=== PATIENT | female | born 1990 | race Caucasian/White ===

== ENCOUNTER 2021-02-04 18:15 | Emergency (ER) | payer BC, MEDICAID, SELFPAY ==
[2021-02-04 18:31] VITALS: BP 131/96; PULSE 91; RESP 18; TEMP 37.1; O2SAT 96
--- NOTE | 2021-02-04 18:41 | XRR_ITS ---
PROCEDURE INFORMATION: Exam: XR Left Elbow Exam date and time: 02/04/2021 7:06 PM Age: 30 years old Clinical indication: Injury or trauma; Blunt trauma (contusions or hematomas); Elbow; Injury date: 02/04/21; Patient HX: Fall from horse today, left arm pain TECHNIQUE: Imaging protocol: XR Left elbow. Views: 1 or 2 views. Total images: 2 COMPARISON: No relevant prior studies available. FINDINGS: Bones/joints: Normal. Soft tissues: Normal. XR/XR elbow LT 2V [id number] IMPRESSION: No acute findings.
--- NOTE | 2021-02-04 18:41 | XRR_ITS ---
PROCEDURE INFORMATION: Exam: XR Left Forearm Exam date and time: 02/04/2021 6:42 PM Age: 30 years old Clinical indication: Injury or trauma; Blunt trauma (contusions or hematomas); Arm, lower; Injury date: 02/04/21; Patient HX: Fall from horse today, left arm pain TECHNIQUE: Imaging protocol: XR Left forearm. Views: 2 views. Total images: 2 COMPARISON: No relevant prior studies available. FINDINGS: Bones/joints: Normal. Soft tissues: Normal. XR/XR forearm LT 2V [id number] IMPRESSION: No acute findings.
--- NOTE | 2021-02-04 18:41 | XRR_ITS ---
PROCEDURE INFORMATION: Exam: XR Left Humerus Exam date and time: 02/04/2021 7:06 PM Age: 30 years old Clinical indication: Injury or trauma; Blunt trauma (contusions or hematomas); Arm, upper; Injury date: 02/04/21; Patient HX: Fall from horse today, left arm pain TECHNIQUE: Imaging protocol: XR Left humerus. Views: 2 or more views. Total images: 2 COMPARISON: No relevant prior studies available. FINDINGS: Bones/joints: Normal. Soft tissues: Normal. XR/[place] [id number] IMPRESSION: No acute findings.
--- NOTE | 2021-02-04 18:43 | ED_ITS ---
HPI - Extremity Problem General: Chief complaint: Extremity Injury, Upper Stated complaint: Injury L.Arm/Bucked off Horse Time Seen by Provider: 02/04/21 18:38 History of Present Illness: HPI Narrative: Patient bucked off a horse just a few minutes ago has pain to her left elbow area. Denies any loss consciousness denies any pain anywhere else. MD Complaint: extremity pain and joint pain Onset (ago): minute(s) Pain Consistency: constant Location: left, upper extremity and elbow Severity scale (1-10): 8 Quality: aching Radiation: proximal and distal Relieving factors: immobilization Exacerbating factors: range of motion Associated symptoms: Reports no associated symptoms; Deny chest pain, fever(s) or rash Review of Systems Const: Denies: fever(s), chills or body aches Eyes: Denies: change in vision or blurry vision ENMT: Denies: throat pain or nasal congestion Card: Denies: chest pain or dyspnea on exertion Resp: Denies: dyspnea, productive cough or non-productive cough GI: Denies: abdominal pain, nausea or vomiting Musc: Reports: extremity pain and joint pain (Left elbow) Skin/Breast: Denies: rash Neuro: Denies: headache(s) Psych: Denies: anxiety or depression Milind/Lymph: Denies: easy bruising Physical Exam Const: COMMON NORMALS: no acute distress, average body habitus and patient oriented x3 HENMT: COMMON NORMALS: normocephalic HEAD & SCALP: normal to inspection and normocephalic FACE & SINUS: normal facial exam Eye: COMMON NORMALS: conjunctivae normal GENERAL EYE: appearance normal, both eyes and all related structures CONJUNCTIVA: Yes conjunctivae normal Neck/C-Spine: COMMON NORMALS: no JVD Chest: COMMONS NORMALS: normal inspection of the chest Resp: COMMON NORMALS: normal respiratory effort and clear to auscultation bilaterally AUSCULTATION: clear to auscultation bilaterally Cardio: COMMON NORMALS: no JVD, regular rate and regular rhythm RATE: regular rate RHYTHM: regular rhythm GI: COMMON NORMALS: Normal to inspection, nondistended, normoactive bowel marly nds present Extremity: LEFT UPPER EXTREMITY: Yes elbow joint (Very tender decreased range of motion due to pain) Left elbow: Yes neurovascular exam (Can move fingers fingers 3 through 5 feel numb to her) Neuro: COMMON NORMALS: patient oriented x3 Course Vital Signs: Vital signs: Vital Signs Temperature 98.7 F 02/04/21 18:31 Pulse Rate 78 02/04/21 20:20 Respiratory Rate 18 02/04/21 20:20 Blood Pressure 124/76 02/04/21 20:20 Pulse Oximetry 97 02/04/21 20:20 MDM - Extremity (Nontraumatic) MDM Narrative: Medical decision making narrative: X-rays reviewed with Dr. Ortiz. Reviewed radiologist interpretation. Patient appears to have ulnar contusion. Was better by the end of visit here. Discharge Plan Discharge Patient Disposition: Home Clinical Impression: Contusion of ulnar nerve Qualifiers: Encounter type: initial encounter Laterality: left Qualified Code(s): S54.02XA - Injury of ulnar nerve at forearm level, left arm, initial encounter Condition: Stable Discharge Orders: Discharge ED (Routine); Ordered 02/04/21 Ordered By: Francisco Gutierrez Referrals: Ish Mcghee MD [Primary Care Provider] - Discharge Diet: Usual diet Discharge Activity: Increase activity as tolerated Patient Instructions: Contusion in Adults (ED) Activity Restrictions/Additional Instructions: Apply ice to area can take naproxen for pain follow-up as needed. Coding Level of Care Code ED Elementary Educator for Gay Fwelodia Exam Comprehensive
[2021-02-04] MEDS: ondansetron 2 mg/ML SDV 2 mL 4 MG IVP (19:08)
[2021-02-04 19:09] VITALS: RESP 22; O2SAT 99
[2021-02-04] MEDS: HYDROmorphone 1 mg/mL INJ 1 mL IVP (19:09)
[2021-02-04 19:13] VITALS: PULSE 80
[2021-02-04 19:18] VITALS: BP 144/85; PULSE 67; RESP 18; O2SAT 97
[2021-02-04 20:20] VITALS: BP 124/76; PULSE 78; RESP 18; O2SAT 97
== END 2021-02-04 20:23 | disposition home or self-care (01) ==
PROVIDERS: Emergency Provider Nurse Practitioner Family; PCP Family Medicine
DX: S54.02XA Injury of ulnar nerve at forearm level, left arm, initial encounter (principal); V80.919A Animal-rider injured in unspecified transport accident, initial encounter
CPT/HCPCS: 73060; 73070; 73090; 96374; 96375; 99283; J1170; J2405

== ENCOUNTER 2021-02-28 06:52 | Outpatient (CLI) | payer BC, MEDICAID, SELFPAY ==
--- NOTE | 2021-02-28 10:15 | MR_ITS ---
WS: [id number] MRI LEFT ELBOW without CONTRAST. COMPARISON: Radiographs 02/11/2021 Multiplanar, multisequence imaging is performed without contrast. There is a large amount of marrow edema in the lateral humeral condyle and epicondyle. Edema extends over the distal 3.7 cm of the humerus. No edema in the radial head. No discrete fracture line. With t his amount of edema fracture is probably present. There is a moderate size joint effusion extending into the anterior and posterior capsule and soft ti ssue edema surrounding the elbow. There is a large amount of edema in the palmaris longus muscle aparna g the medial joint line. Edema surrounds the common flexor tendon. There is edema surrounding the uln ar collateral ligament also. Fluid adjacent to the radial collateral ligament and the common extensor tendon. MR/MR elbow LT wo con* [id number] IMPRESSION: 1. Large amount of marrow edema in the lateral humeral condyle and epicondyle without a definite fracture identified. 2. Muscular edema most significant in the palmaris longus muscle along the med ial joint line of the elbow. 3. There is a large amount of edema and increased T2 signal surrounding and th rough the flexor and extensor tendons and also involving the ulnar collateral l igament and the radial collateral ligament. There is motion artifact obscuring detail but I believe these tendons and ligaments are at least partially torn. Heena whiting was unable to hold still for this examination due to discomfort. 4. Moderate-sized joint effusion distending the anterior and posterior capsule .
== END 2021-02-28 06:53 | disposition home or self-care (01) ==
LOC: RADSHAW 06:54
PROVIDERS: PCP Family Medicine; Visit Provider Family Medicine
DX: S59.902A Unspecified injury of left elbow, initial encounter (principal); R60.0 Localized edema; X58.XXXA Exposure to other specified factors, initial encounter; M25.422 Effusion, left elbow
CPT/HCPCS: 73221

== ENCOUNTER → 2021-03-02 10:41 | Outpatient (BNVA) | payer BC, MEDICAID, SELFPAY | PROVIDERS: PCP Family Medicine; Referring Provider Family Medicine; Visit Provider Specialist | DX: M25.522 Pain in left elbow (principal) | CPT/HCPCS: 73080 ==

== ENCOUNTER 2021-03-02 14:14 | Outpatient (CLI) | payer BC, MEDICAID, SELFPAY | END 2021-03-02 14:15 | disposition home or self-care (01) | LOC: SPT 14:14 | PROVIDERS: PCP Family Medicine; Visit Provider Specialist | DX: Z46.89 Encounter for fitting and adjustment of other specified devices (principal); S42.452D Displaced fracture of lateral condyle of left humerus, subsequent encounter for fracture with routine healing; X58.XXXD Exposure to other specified factors, subsequent encounter | CPT/HCPCS: 97760; L3761 ==

== ENCOUNTER → 2021-03-30 11:07 | Outpatient (BNVA) | payer BC, MEDICAID, SELFPAY | PROVIDERS: PCP Family Medicine; Visit Provider Specialist | DX: S42.453A Displaced fracture of lateral condyle of unspecified humerus, initial encounter for closed fracture (principal); M25.522 Pain in left elbow; X58.XXXA Exposure to other specified factors, initial encounter | CPT/HCPCS: 73080 ==

== ENCOUNTER 2022-05-13 09:05 | Emergency (ER) | payer BC, MEDICAID, SELFPAY ==
[2022-05-13 09:09] VITALS: BMI 30.1
--- NOTE | 2022-05-13 09:16 | USR_ITS ---
PROCEDURE INFORMATION: Exam: US Nonobstetric Pelvis; Complete Exam date and time: 05/13/2022 9:50 AM Age: 31 years old Clinical indication: Pelvic pain; Prior surgery; Surgery date: 6+ months; Surgery type: Csection TECHNIQUE: Imaging protocol: Transabdominal pelvic nonobstetric ultrasound. Complete exam. Real time ultrasound with image documentation. COMPARISON: US [facility] [place] Pelvic w TV 10/25/2017 1:31 PM FINDINGS: Uterus: Uterus is normal. Endometrial stripe is 4.8 mm. The uterus measures 8 cm x 5.1 cm x 5.8 cm Right ovary/adnexa: Ovary is normal. No mass. Normal blood flow. 2.8 x 2.4 cm x 2.1 Left ovary/adnexa: Ovary is normal. No mass. No vascular flow is seen possible torsion. Left ovary measures 2 cm x 2 cm x 4 cm Intraperitoneal space: No intraperitoneal fluid. Urinary bladder: Normal. US/US pelvic complete* [id number] IMPRESSION: 1. Left ovary is without evidence of vascular flow possible torsion. 2. Negative uterus and endometrium 3. Negative right ovary
[2022-05-13] MEDS: promethazine 25 mg/mL SDV 1 mL IM (09:37)
[2022-05-13] MEDS: ketorolac 30 mg/mL INJ IVP (09:38)
--- NOTE | 2022-05-13 09:39 | W.ED.ABDPA2 ---
HPI - Abdominal Pain General: Chief Complaint: Abdominal Pain Stated Complaint: left Ovary pain Time Seen by Provider: 05/13/22 09:06 Source: patient Mode of arrival: ambulatory History of Present Illness: 31-year-old female presents emergency room with left sided pelvic pain that began last night. She has had a history of PCOS. She is used tramadol last night it had helped relieve the pain somewhat but not completely resolve it. She still has rather severe pain in that side. She is currently on her period its been rather light she is not previously had tubal ligation or any ectopic pregnancies she is her only abdominal surgeries were 2 planned sections. She not had any fever sweats chills no dysuria urgency or frequency no excessively heavy bleeding. Despite the PCOS she states she has not had major problems with ovarian cyst in the past. MD elicited complaint: other (Pelvic pain) Onset (ago): hour(s) Pain Consistency: constant Location: LLQ Severity: severe Quality: cramping Radiation: none Migration to: no migration Exacerbating factors: nothing Relieving factors: nothing Associated Symptoms: Reports GI cramping and nausea; Denies anorexia, belching, bloating, change in bowel habits, change in stool character, chills, coffee ground emesis, constipation, diarrhea, dyspepsia, dysuria, excessive flatus, fever(s), heartburn, hematochezia, hematuria, hematemesis, fecal incontinence, loose stools, melena, poor appetite, syncope and vomiting Related Data: Date of Last Menstrual Period: 05/13/22 Review of Systems Const: Denies: fever(s), chills, fatigue or malaise ENMT: Denies: throat pain, ear or mastoid pain, nasal discharge or nasal congestion Card: Denies: chest pain, palpitations, irregular heart rhythm or syncope Resp: Denies: dyspnea, productive cough or non-productive cough GI: Reports: abdominal pain, nausea and GI cramping; Denies: vomiting, hematemesis, coffee ground emesis, heartburn, diarrhea, constipation, bloating, belching, excessive flatus, fecal incontinence, change in bowel habits, change in stool character, hematochezia or melena : Denies: flank pain, difficulty voiding, dysuria, urinary frequency, urinary urgency or hematuria Skin/Breast: Denies: rash or pruritus PFSH ED PFSH: Social History Smoking and tobacco status: never smoked Female Reproductive History: Date of last menstrual period: 05/13/22 Physical Exam Const: COMMON NORMALS: no acute distress GENERAL APPEARANCE: cooperative and comfortable ORIENTATION/CONSCIOUSNESS: Yes awake, Yes oriented to person, Yes oriented to place and Yes oriented to time HENMT: COMMON NORMALS: normocephalic, atraumatic and hearing grossly normal bilaterally HEAD & SCALP: normocephalic and atraumatic Resp: COMMON NORMALS: normal respiratory effort, No retractions, No use of accessory muscles and clear to auscultation bilaterally AUSCULTATION: clear to auscultation bilaterally Cardio: COMMON NORMALS: regular rate, regular rhythm and No murmurs present (Cardio) RATE: regular rate RHYTHM: regular rhythm GI: COMMON NORMALS: No hepatosplenomegaly present AUSCULTATION: Yes normoactive bowel sounds PALPATION: Yes Tenderness to palpation present (GI) Details: LLQ, No Guarding due to palpation present (GI) and Yes No hepatosplenomegaly present Extremity: COMMON NORMALS: normal to inspection, capillary refill normal, no clubbing, cyanosis or edema, no calf tenderness and no pedal edema Neuro: SENSORIUM/ORIENTATION: Yes oriented to person, Yes oriented to place and Yes oriented to time Skin: COMMON NORMALS: no rashes or lesions noted GENERAL SKIN EXAM: no rashes or lesions noted Course Vital Signs: Vital signs: Vital Signs Temperature 98.6 F 05/13/22 10:25 Pulse Rate 73 05/13/22 10:25 Respiratory Rate 16 05/13/22 10:27 Blood Pressure 143/99 05/13/22 10:25 Pulse Oximetry 98 05/13/22 10:25 Oxygen Delivery Me thod 05/13/22 10:25 MDM - Abdominal Pain Medical Decision Making Sound read as left ovarian torsion. Discussed with gynecology on-call in [place] transferred via ambulance for left ovarian torsion. Medical Records I reviewed the patient's medical records. Lab Data I reviewed the patient's lab results. : 05/13/22 09:40 05/13/22 09:40 Labs/Radiology: Radiology Impressions Pelvis Ultrasound 05/13/22 09:16 IMPRESSION: 1. Left ovary is without evidence of vascular flow possible torsion. 2. Negative uterus and endometrium 3. Negative right ovary ADDENDUM: 05/13/22 1028 THADDEUS Bocanegra has seen the report and does not have further questions and does not require a conference call at 05/13/2022 10:26 AM Laboratory Results WBC 9.2 10^3/uL (4.0-10.0) 05/13/22 09:40 RBC 4.52 10^6/uL (4.1-5.3) 05/13/22 09:40 Hgb 14.0 g/dL (11.5-15.3) 05/13/22 09:40 Hct 43.1 % (37.0-47.0) 05/13/22 09:40 MCV 95.4 fl (81-99) 05/13/22 09:40 MCH 31.0 pg (28.0-34.0) 05/13/22 09:40 MCHC 32.5 g/dL (30.0-36.0) 05/13/22 09:40 RDW 12.4 % (12.1-15.1) 05/13/22 09:40 Plt Count 295 10^3/cmm (130-400) 05/13/22 09:40 MPV 9.5 fL (7.4-10.4) 05/13/22 09:40 Neut % (Auto) 69.6 % 05/13/22 09:40 Lymph % (Auto) 19.2 % 05/13/22 09:40 Parker % (Auto) 8.1 % 05/13/22 09:40 Eos % (Auto) 2.3 % 05/13/22 09:40 Baso % (Auto) 0.5 % 05/13/22 09:40 Neut # (Auto) 6.38 10^3/uL (1.8-7.7) 05/13/22 09:40 Lymph # (Auto) 1.8 10^3/uL (0.8-4.8) 05/13/22 09:40 Parker # (Auto) 0.7 10^3/uL (0.2-0.9) 05/13/22 09:40 Eos # (Auto) 0.2 10^3/uL (0.0-0.8) 05/13/22 09:40 Baso # (Auto) 0.1 10^3/uL (0.0-0.1) 05/13/22 09:40 Nucleated RBC % (auto) 0 % 05/13/22 09:40 Nucleated RBCs # 0.0 /100WBC 05/13/22 09:40 Sodium 141 mmol/L (136-145) 05/13/22 09:40 Potassium 3.9 mmol/L (3.5-5.1) 05/13/22 09:40 Chloride 106 mmol/L (98-107) 05/13/22 09:40 Carbon Dioxide 26 mmol/L (22-29) 05/13/22 09:40 Anion Gap 12.9 (5-19) 05/13/22 09:40 BUN 11 mg/dL (6-20) 05/13/22 09:40 Creatinine 0.9 mg/dL (0.5-0.9) 05/13/22 09:40 GFR Calculation 73.0 mL/min (90-130) L 05/13/22 09:40 Glucose 78 mg/dL (65-115) 05/13/22 09:40 Calculated Osmolality 290 mOsm/kg (285-295) 05/13/22 09:40 Calcium 8.6 mg/dL (8.5-10.5) 05/13/22 09:40 Total Bilirubin 0.3 mg/dL (0.15-1.2) 05/13/22 09:40 AST 12 U/L (0-32) 05/13/22 09:40 ALT 11 U/L (0-33) 05/13/22 09:40 Alkaline Phosphatase 67 U/L (35-105) 05/13/22 09:40 Total Protein 6.6 g/dL (6.6-8.7) 05/13/22 09:40 Albumin 4.0 g/dL (3.5-5.2) 05/13/22 09:40 Globulin 2.6 g/dL (1.3-4.6) 05/13/22 09:40 HCG, Qual Cancelled 05/13/22 09:40 Urine Color Yellow (Yellow) 05/13/22 10:15 Urine Appearance Sl hazy (CLEAR) 05/13/22 10:15 Urine pH 7 (5-7) 05/13/22 10:15 Ur Specific [place] 1.005 (1.005-1.030) 05/13/22 10:15 Urine Protein Neg (Negative) 05/13/22 10:15 Urine Glucose (UA) Norm (Normal) 05/13/22 10:15 Urine Ketones Negative (Negative) 05/13/22 10:15 Urine Blood 3+ (Negative) H 05/13/22 10:15 Urine Nitrate Negative (Negative) 05/13/22 10:15 Urine Bilirubin Neg (Negative) 05/13/22 10:15 Urine Urobilinogen Norm mg/dL (Negative) 05/13/22 10:15 Ur Leukocyte Esterase Trace (Negative) H 05/13/22 10:15 Urine RBC 0-4 /hpf (0-2) H 05/13/22 10:15 Urine WBC 0-4 /hpf (0-5) H 05/13/22 10:15 Ur Squamous Epith Cells 0-4 /hpf (0-5) H 05/13/22 10:15 Amorphous Sediment Not Reportable 05/13/22 10:15 Urine Bacteria Trace /hpf (NONE) 05/13/22 10:15 Urine HCG, Qual Negative (Negative) 05/13/22 10:15 Discharge Plan Discharge Patient Disposition: Xfer Short-Term Hosp Clinical Impression: Torsion of left ovary Condition: Stable Referrals: [facility], [Occupational Therapist] - Coding Level of Care Code ED Radio Time Sales Supervisor for Gay Garcia
[2022-05-13 09:48] LABS: Basophils # 0.1 10^3/uL (0.0-0.1); Basophils % 0.5 %; Eosinophils # 0.2 10^3/uL (0.0-0.8); Eosinophils % 2.3 %; Hematocrit 43.1 % (37.0-47.0); Lymphocytes # 1.8 10^3/uL (0.8-4.8); Lymphocytes % 19.2 %; Mean Corpuscular HGB Conc 32.5 g/dL (30.0-36.0); Mean Corpuscular Volume 95.4 fl (81-99); Mean Platelet Volume 9.5 fL (7.4-10.4); Monocytes # 0.7 10^3/uL (0.2-0.9); Monocytes % 8.1 %; Neutrophils # 6.38 10^3/uL (1.8-7.7); Neutrophils % 69.6 %; Nucleated Red Blood Cells % 0 %; Platelet Count 295 10^3/cmm (130-400); Red Blood Count 4.52 10^6/uL (4.1-5.3); Red Cell Distribution Width 12.4 % (12.1-15.1); White Blood Count 9.2 10^3/uL (4.0-10.0)
[2022-05-13 10:13] LABS: Alanine Aminotransferase 11 U/L (0-33); Alkaline Phosphatase 67 U/L (35-105); Anion Gap 12.9 (5-19); Aspartate Amino Transferase 12 U/L (0-32); Blood Urea Nitrogen 11 mg/dL (6-20); Calcium 8.6 mg/dL (8.5-10.5); Carbon Dioxide 26 mmol/L (22-29); Chloride 106 mmol/L (98-107); Globulin 2.6 g/dL (1.3-4.6); Glucose 78 mg/dL (65-115); Osmolality Calculated 290 mOsm/kg (285-295); Potassium 3.9 mmol/L (3.5-5.1); Sodium 141 mmol/L (136-145); Total Bilirubin 0.3 mg/dL (0.15-1.2); Total Protein 6.6 g/dL (6.6-8.7)
--- NOTE | 2022-05-13 10:23 | PC.NURSE ---
Report has been called to Myrna COOK
[2022-05-13 10:25] VITALS: BP 143/99; PULSE 73; RESP 18; TEMP 37; O2SAT 98
[2022-05-13 10:27] VITALS: RESP 16
[2022-05-13] MEDS: fentaNYL 50 mcg/mL INJ 2mL IVP (10:27)
[2022-05-13 10:48] LABS: Urine Appearance SL Hazy (CLEAR); Urine Color Yellow (Yellow)
[2022-05-13 10:49] LABS: Add Urine Culture? No; Add Urine Microscopic? YES; Bacteria Urine TRACE /hpf; Bilirubin Urine Neg (Negative); Blood Urine 3+ (Negative); Glucose Urine UA Norm (Normal); Ketones Urine Negative (Negative); Leukocyte Esterase Urine Trace (Negative); Nitrate Urine Negative (Negative); Protein Urine Neg (Negative); RBC Urine 0-4 /hpf (0-2); Specific Gravity, Urine 1.005 (1.005-1.030); Squamous Epithelial Cell Urine 0-4 /hpf (0-5); Urobilinogen Urine Norm (Negative); WBC Urine 0-4 /hpf (0-5); pH Urine 7 (5-7)
== END 2022-05-13 10:50 | disposition short-term general hospital (02) ==
PROVIDERS: Emergency Provider Family Medicine
DX: N83.512 Torsion of left ovary and ovarian pedicle (principal)
CPT/HCPCS: 76856; 80053; 81001; 81025; 85025; 96372; 96374; 96375; 99285; J1885; J2550; J3010

== ENCOUNTER 2022-05-29 00:35 | Emergency (ER) | payer BC, MEDICAID, SELFPAY ==
[2022-05-29 00:54] VITALS: BP 137/97; PULSE 94; RESP 18; TEMP 36.8; O2SAT 98; BMI 28.3
--- NOTE | 2022-05-29 00:59 | W.ED.EXTPRO ---
HPI - Extremity Problem General: Chief complaint: Extremity Injury, Lower Stated complaint: left leg numbness Time Seen by Provider: 05/29/22 00:58 History of Present Illness: 31-year-old female comes in today with pain to the tailbone and numbness to the left lower extremity. Patient reports slipping and falling about 630 this evening. Patient had some discomfort but then started having numbness around 11:00 tonight and became concerned and came into the emergency department. Patient appears nontoxic. Patient appears in mild pain. Review of Systems Musc: Reports: back pain PFS ED PFSH: Social History Smoking and tobacco status: never smoked Female Reproductive History: Date of last menstrual period: 05/13/22 Physical Exam Const: COMMON NORMALS: alert HENMT: COMMON NORMALS: normocephalic HEAD & SCALP: normocephalic Neck/C-Spine: COMMON NORMALS: full ROM Resp: COMMON NORMALS: normal respiratory effort and clear to auscultation bilaterally AUSCULTATION: clear to auscultation bilaterally Back/Pelvis: LUMBAR SPINE/LOWER BACK: Yes lumbar spinal tenderness Lumbar spinal tenderness location: L5 SACRUM: tenderness positive midline Extremity: COMMON NORMALS: normal to inspection Neuro: SENSORIUM/ORIENTATION: Yes alert Skin: COMMON NORMALS: turgor normal GENERAL SKIN EXAM: turgor normal Course Vital Signs: Vital signs: Vital Signs Temperature 98.2 F 05/29/22 00:54 Pulse Rate 94 05/29/22 00:54 Respiratory Rate 17 05/29/22 01:10 Blood Pressure 137/97 05/29/22 00:54 Pulse Oximetry 100 05/29/22 01:10 Oxygen Delivery Me thod 05/29/22 01:10 MDM - Extremity (Nontraumatic) Medical Decision Making Patient comes in for evaluation of injury sustained during a fall this evening at around 630. Patient reports tailbone pain. Patient became more concerned when she had numbness in her left leg. Patient admits to taking a half a tablet of tramadol with minimal improvement of pain. Patient appears nontoxic. Patient has tenderness in the lower lumbar spine and sacral area on palpation. Leg lift test is negative. Patient is able ambulate without difficulty. Vital signs are normal. Differential diagnosis includes intervertebral disc disease, facet arthropathy, muscle spasm, vertebral fracture. X-ray of the lumbar spine and sacral coccyx showed no obvious fracture. Radiologist will review that for definitive interpretation. Patient does have some loss of lower lumbar curvature suggesting may be a muscle spasm. Recommended patient do gentle stretching and range of motion exercises. Put patient on ibuprofen 800 mg 3 times a day for 7 to 10 days for pain and inflammation. Recommend acetaminophen for further pain relief. Wrote a prescription for 7 tablets of hydrocodone for breakthrough pain. Patient was encouraged to stay active, drink plenty of fluids, and follow-up with primary care for further evaluation. Patient stated understanding and agreed to plan. Discharge Plan Discharge Patient Disposition: Home Clinical Impression: Fall Qualifiers: Encounter type: initial encounter Qualified Code(s): W19.XXXA - Unspecified fall, initial encounter Low back pain Qualifiers: Chronicity: acute Back pain laterality: left Sciatica presence: with sciatica Sciatica laterality: sciatica of left side Qualified Code(s): M54.42 - Lumbago with sciatica, left side Condition: Stable Prescriptions: New ibuprofen 800 mg tablet 800 mg PO Q8H Qty: 30 0RF hydrocodone-acetaminophen 5-325 mg tablet 1 tab PO Q8H PRN (Reason: pain (scale score 7-10)) Qty: 7 0RF No Action naproxen sodium [Flanax (naproxen)] 220 mg tablet 220 mg PO BID PRN (DME) HINGED ELBOW BRACE See Rx Instructions .ROUTE .MEDSUPPLY Qty: 1 0RF Rx Instructions: As directed Discharge Orders: Discharge ED (Routine); Ordered 05/29/22 Ordered By: Jorge Jones Referrals: Ish Mcghee MD [Primary Care Provider] - Discharge Diet: Usual diet Discharge Activity: Increase activity as tolerated Patient Instructions: Back Pain (ED), Opioid Safety Activity Restrictions/Additional Instructions: Activity as tolerated. Gentle stretching and range of motion exercises. Take ibuprofen 800 mg 3 times a day for the next 7 to 10 days for pain and inflammation. Use acetaminophen 1000 mg every 6 hours as needed to help control pain. Use hydrocodone for severe pain. Drink plenty of water with medications. Avoid the use of hydrocodone containing medication while driving or operating equipment that may hurt other individuals. Follow-up with primary care in 3 to 5 days for recheck. Return to ER for new concerns or worsening symptoms such as loss of bowel or bladder control, fever greater than 100.4, or uncontrolled pain. Coding Level of Care Code ED Manager Field Investigations for Chg Fwd Exam Detailed
--- NOTE | 2022-05-29 01:01 | XRR_ITS ---
PROCEDURE INFORMATION: Exam: XR Sacrum and Coccyx, 2 or More Views Exam date and time: 05/29/2022 1:08 AM Age: 31 years old Clinical indication: Injury or trauma; Fall; Blunt trauma (contusions or hematomas); Additional info: Fall, radiculopathy TECHNIQUE: Imaging protocol: XR of the sacrum and coccyx, 2 or more views. COMPARISON: CR XR lumbar spine 2-3V* [id number] 10/22/2018 12:41 PM FINDINGS: Bones/joints: Normal. No acute fracture. Soft tissues: Normal. XR/XR sacrum coccyx min 2V [id number] IMPRESSION: No acute findings.
--- NOTE | 2022-05-29 01:01 | XRR_ITS ---
PROCEDURE INFORMATION: Exam: XR Lumbosacral Spine Exam date and time: 05/29/2022 1:17 AM Age: 31 years old Clinical indication: Injury or trauma; Fall; Blunt trauma (contusions or hematomas); Additional info: Injury, fall, radiculopathy TECHNIQUE: Imaging protocol: Radiologic exam of the lumbosacral spine. Views: 2 or 3 views. COMPARISON: CR XR sacrum coccyx min 2V [id number] 05/29/2022 1:08 AM FINDINGS: Bones/joints: Normal. No acute fracture. Normal alignment. Soft tissues: Unremarkable. XR/XR lumbar spine 2-3V* [id number] IMPRESSION: No acute findings.
[2022-05-29 01:10] VITALS: RESP 17; O2SAT 100
[2022-05-29] MEDS: ibuprofen 800 mg tablet PO (01:10)
== END 2022-05-29 01:47 | disposition home or self-care (01) ==
PROVIDERS: Emergency Provider Nurse Practitioner Family; PCP Family Medicine
DX: M54.42 Lumbago with sciatica, left side (principal); W01.0XXA Fall on same level from slipping, tripping and stumbling without subsequent striking against object, initial encounter
CPT/HCPCS: 72100; 72220; 99283

== ENCOUNTER 2022-07-26 15:47 | Emergency (ER) | payer BC, MEDICAID, SELFPAY ==
[2022-07-26 15:56] VITALS: BP 123/81; PULSE 77; RESP 14; TEMP 36.6; O2SAT 99; BMI 27.4
--- NOTE | 2022-07-26 16:01 | USR_ITS ---
PROCEDURE INFORMATION: Exam: US Duplex Artery or Vein of the Abdominal and/or Reproductive Organs, Limited Ovaries Exam date and time: 07/26/2022 4:39 PM Age: 31 years old Clinical indication: Pelvic pain; Prior surgery; Surgery date: 6+ months; Surgery type: History of two c sections TECHNIQUE: Imaging protocol: Real-time duplex ultrasound scan of the arterial or venous flow with witt scale, color Doppler flow and spectral waveform analysis with image documentation. Limited duplex exam focused on the ovaries. Duplex exam was performed to evaluate for torsion and other vascular conditions. COMPARISON: US pelvic complete* [id number] 05/13/2022 9:50 AM FINDINGS: Right ovary/adnexa: Normal duplex of the ovary. Normal Doppler waveforms and color flow. No evidence of ovarian torsion. Left ovary/adnexa: Normal duplex of the ovary. Normal Doppler waveforms and color flow. No evidence of ovarian torsion. PROCEDURE INFORMATION: Exam: US Pelvis, Transvaginal Exam date and time: 07/26/2022 4:39 PM Age: 31 years old Clinical indication: Pelvic pain; Prior surgery; Surgery date: 6+ months; Surgery type: History of two c sections TECHNIQUE: Imaging protocol: Real-time transvaginal pelvic ultrasound with image documentation. Transvaginal imaging was used for better evaluation of the endometrium, adnexa, and/or cervix. COMPARISON: US pelvic complete* [id number] 05/13/2022 9:50 AM FINDINGS: Uterus: The uterus is retroflexed. Uterine contours are normal. The endometrium is homogenous. Endometrial stripe thickness measures 5 mm. There is a hypoechoic myometrial mass measuring 10 x 7 x 6 mm located at the uterine fundus. There is no mass effect on the endometrium or contour deformity. There is minimal calcification at the lower endometrial margin. This finding is similar to 05/13/2022 and is of uncertain clinical significance. Right ovary/adnexa: The right ovary is morphologically normal. There is normal blood flow in the right ovary. The right ovary measures 3.5 x 2.9 x 1.9 cm. Left ovary/adnexa: The left ovary is morphologically normal. The left ovary measures 3.1 x 2.4 x 2.1 cm. The left ovary contains a 13 mm dominant follicle. There is normal blood flow in the left ovary. Intraperitoneal space: No pelvic free fluid. US/US transvaginal [id number] IMPRESSION: Normal duplex of the ovaries. No evidence of ovarian torsion. IMPRESSION: 1. No acute findings. 2. 1 cm myometrial leiomyoma at the uterine fundus.
--- NOTE | 2022-07-26 16:11 | PC.PHAR ---
pt states she takes levothyroxine 25mcg daily-pt states fills at [facility]-per trey with [facility] states not filled medication for pt-[facility] main pharmacy states not filled medication for the pt either
--- NOTE | 2022-07-26 16:17 | W.ED.ABDPA2 ---
HPI - Abdominal Pain General: Chief Complaint: Abdominal Pain Stated Complaint: Abd pain Time Seen by Provider: 07/26/22 16:01 Source: patient Mode of arrival: ambulatory History of Present Illness: 81-year-old female presents to the emergency room with left ovary pain. We did seen her previously she had a left ovarian torsion she was transported to [facility] where they reevaluated her and felt that the torsion had resolved. She did not undergo any treatment. No nausea no vomiting no diarrhea no hematuria no dysuria urgency or frequency. No fever sweats or chills she does not believe she is . MD elicited complaint: abdominal pain Pertinent past history: other (Previous ovarian torsion) Onset (ago): hour(s) Pain Consistency: constant Location: LLQ Severity: severe Quality: cramping Radiation: none Migration to: no migration Exacerbating factors: nothing and bowel movement Relieving factors: nothing Associated Symptoms: Reports GI cramping; Denies anorexia, belching, bloating, change in bowel habits, change in stool character, chills, coffee ground emesis, constipation, diarrhea, dyspepsia, dysuria, excessive flatus, fever(s), heartburn, hematochezia, hematuria, hematemesis, fecal incontinence, loose stools, melena, nausea, poor appetite, syncope and vomiting Related Data: Date of Last Menstrual Period: 05/13/22 Review of Systems Const: Denies: fever(s) or chills ENMT: Denies: throat pain, ear or mastoid pain, nasal discharge or nasal congestion Card: Denies: chest pain, palpitations, irregular heart rhythm, edema or syncope Resp: Denies: dyspnea, productive cough or non-productive cough GI: Reports: GI cramping; Denies: nausea, vomiting, hematemesis, coffee ground emesis, heartburn, diarrhea, constipation, bloating, belching, excessive flatus, fecal incontinence, change in bowel habits, change in stool character, hematochezia or melena : Denies: flank pain, difficulty voiding, dysuria, urinary frequency, urinary urgency, hematuria, vaginal dryness, vaginal odor or vaginal bleeding Musc: Denies: neck pain or back pain Skin/Breast: Denies: rash or pruritus PFS ED PFSH: Medical History (Updated 07/26/22 @ 17:14 by Thaddeus L Horstman, DO) Hypothyroid Social History Smoking and tobacco status: never smoked Female Reproductive History: Date of last menstrual period: 05/13/22 Physical Exam Const: COMMON NORMALS: no acute distress GENERAL APPEARANCE: cooperative and comfortable ORIENTATION/CONSCIOUSNESS: Yes awake, Yes oriented to person, Yes oriented to place and Yes oriented to time HENMT: COMMON NORMALS: normocephalic, atraumatic and hearing grossly normal bilaterally HEAD & SCALP: normocephalic and atraumatic Resp: COMMON NORMALS: normal respiratory effort, No retractions, No use of accessory muscles and clear to auscultation bilaterally AUSCULTATION: clear to auscultation bilaterally Cardio: COMMON NORMALS: regular rate, regular rhythm and No murmurs present (Cardio) RATE: regular rate RHYTHM: regular rhythm GI: COMMON NORMALS: Soft to palpation and No hepatosplenomegaly present AUSCULTATION: Yes normoactive bowel sounds PALPATION: Yes Soft to palpation, No Tenderness to palpation present (GI), No Guarding due to palpation present (GI) and Yes No hepatosplenomegaly present : COMMON NORMALS: Yes no CVA tenderness BLADDER/KIDNEY EXAM: Yes no CVA tenderness OTHER: Left pelvic pain Back/Pelvis: COMMON NORMALS: no CVA tenderness Extremity: COMMON NORMALS: normal to inspection, capillary refill normal, no clubbing, cyanosis or edema, no calf tenderness and no pedal edema Neuro: SENSORIUM/ORIENTATION: Yes oriented to person, Yes oriented to place and Yes oriented to time Skin: COMMON NORMALS: no rashes or lesions noted GENERAL SKIN EXAM: no rashes or lesions noted Course Vital Signs: Vital signs: Vital Signs Temperature 98 F 07/26/22 15:56 Pulse Rate 77 07/26/22 15:56 Respiratory Rate 16 07/26/22 17:09 Blood Pressure 123/81 07/26/22 15:56 Pulse Oximetry 99 07/26/22 15:56 Oxygen Delivery Me thod 07/26/22 15:56 MDM - Abdominal Pain Medical Decision Making Pelvic ultrasound shows fluid and a small cyst uterine fluid. No evidence of ovarian torsion we will discharge home with anti-inflammatories follow-up with primary care. Medical Records I reviewed the patient's medical records. Lab Data I reviewed the patient's lab results. : 07/26/22 17:00 07/26/22 17:00 Labs/Radiology: Radiology Impressions Transvaginal US 07/26/22 16:01 IMPRESSION: Normal duplex of the ovaries. No evidence of ovarian torsion. IMPRESSION: 1. No acute findings. 2. 1 cm myometrial leiomyoma at the uterine fundus. Laboratory Results WBC 9.1 10^3/uL (4.0-10.0) 07/26/22 17:00 RBC 4.58 10^6/uL (4.1-5.3) 07/26/22 17:00 Hgb 14.2 g/dL (11.5-15.3) 07/26/22 17:00 Hct 43.5 % (37.0-47.0) 07/26/22 17:00 MCV 95.0 fl (81-99) 07/26/22 17:00 MCH 31.0 pg (28.0-34.0) 07/26/22 17:00 MCHC 32.6 g/dL (30.0-36.0) 07/26/22 17:00 RDW 11.9 % (12.1-15.1) L 07/26/22 17:00 Plt Count 333 10^3/cmm (130-400) 07/26/22 17:00 MPV 9.6 fL (7.4-10.4) 07/26/22 17:00 Neut % (Auto) 60.7 % 07/26/22 17:00 Lymph % (Auto) 27.7 % 07/26/22 17:00 [place] % (Auto) 9.2 % 07/26/22 17:00 Eos % (Auto) 1.4 % 07/26/22 17:00 Baso % (Auto) 0.8 % 07/26/22 17:00 Neut # (Auto) 5.52 10^3/uL (1.8-7.7) 07/26/22 17:00 Lymph # (Auto) 2.5 10^3/uL (0.8-4.8) 07/26/22 17:00 [place] # (Auto) 0.8 10^3/uL (0.2-0.9) 07/26/22 17:00 Eos # (Auto) 0.1 10^3/uL (0.0-0.8) 07/26/22 17:00 Baso # (Auto) 0.1 10^3/uL (0.0-0.1) 07/26/22 17:00 Nucleated RBC % (auto) 0 % 07/26/22 17:00 Nucleated RBCs # 0.0 /100WBC 07/26/22 17:00 Sodium 140 mmol/L (136-145) 07/26/22 17:00 Potassium 3.4 mmol/L (3.5-5.1) L 07/26/22 17:00 Chloride 101 mmol/L (98-107) 07/26/22 17:00 Carbon Dioxide 28 mmol/L (22-29) 07/26/22 17:00 Anion Gap 14.4 (5-19) 07/26/22 17:00 BUN 14 mg/dL (6-20) 07/26/22 17:00 Creatinine 0.9 mg/dL (0.5-0.9) 07/26/22 17:00 GFR Calculation 73.0 mL/min (90-130) L 07/26/22 17:00 Glucose 82 mg/dL (65-115) 07/26/22 17:00 Calculated Osmolality 290 mOsm/kg (285-295) 07/26/22 17:00 Calcium 9.2 mg/dL (8.5-10.5) 07/26/22 17:00 Urine Color Yellow (Yellow) 07/26/22 16:12 Urine Appearance Hazy (CLEAR) A 07/26/22 16:12 Urine pH 6 (5-7) 07/26/22 16:12 Ur Specific [place] 1.020 (1.005-1.030) 07/26/22 16:12 Urine Protein Neg (Negative) 07/26/22 16:12 Urine Glucose (UA) Norm (Normal) 07/26/22 16:12 Urine Ketones Negative (Negative) 07/26/22 16:12 Urine Blood 2+ (Negative) H 07/26/22 16:12 Urine Nitrate Negative (Negative) 07/26/22 16:12 Urine Bilirubin Neg (Negative) 07/26/22 16:12 Urine Urobilinogen Norm mg/dL (Negative) 07/26/22 16:12 Ur Leukocyte Esterase Negative (Negative) 07/26/22 16:12 Urine RBC 0-4 /hpf (0-2) H 07/26/22 16:12 Urine WBC 0-4 /hpf (0-5) H 07/26/22 16:12 Ur Squamous Epith Cells 25-40 /hpf (0-5) H 07/26/22 16:12 Amorphous Sediment Not Reportable 07/26/22 16:12 Urine Bacteria Trace /hpf (NONE) 07/26/22 16:12 Urine HCG, Qual Negative (Negative) 07/26/22 16:12 Discharge Plan Discharge Patient Disposition: Home Clinical Impression: Pelvic pain, Ovarian cyst Condition: Stable Prescriptions: New diclofenac sodium 75 mg tablet,delayed release (DR/EC) 75 mg PO Q12H PRN (Reason: pain) Qty: 20 0RF Discontinued ibuprofen 800 mg tablet 800 mg PO Q8H PRN (Reason: Pain) No Action (DME) HINGED ELBOW BRACE See Rx Instructions .ROUTE .MEDSUPPLY Qty: 1 0RF Rx Instructions: As directed Tylenol Ex Str Rapid Release 500 mg Tablet 1,000 mg PO Q6H PRN (Reason: Pain) levothyroxine 25 mcg Tablet 25 mcg PO DAILY Discharge Orders: Discharge ED (Routine); Ordered 07/26/22 Ordered By: Thaddeus Zelaya Referrals: Ish Mcghee MD [Primary Care Provider] - Discharge Diet: Usual diet Discharge Activity: Increase activity as tolerated Patient Instructions: Opioid Safety, Pain Management Activity Restrictions/Additional Instructions: Seen for pelvic pain today there was some fluid in the pelvis suspicious for an ovarian cyst there is also a uterine fluid collection. test was negative. Discharged home instead of using ibuprofen use diclofenac 75 mg 1 every 12 hours as needed if symptoms persist follow-up with your primary care physician Coding Level of Care Code ED Volleyball Referee for Chg Fwd Exam Comprehensive
[2022-07-26 16:51] LABS: Add Urine Microscopic? YES; Bilirubin Urine Neg (Negative); Blood Urine 2+ (Negative); Glucose Urine UA Norm (Normal); Ketones Urine Negative (Negative); Leukocyte Esterase Urine Negative (Negative); Nitrate Urine Negative (Negative); Protein Urine Neg (Negative); Urine Appearance Hazy (CLEAR); Urine Color Yellow (Yellow); Urobilinogen Urine Norm (Negative); pH Urine 6 (5-7)
[2022-07-26 16:52] LABS: Add Urine Culture? No; Bacteria Urine TRACE /hpf; RBC Urine 0-4 /hpf (0-2); Squamous Epithelial Cell Urine 25-40 /hpf (0-5); WBC Urine 0-4 /hpf (0-5)
[2022-07-26] MEDS: ondansetron 2 mg/ML SDV 2 mL 4 MG IVP (17:05)
[2022-07-26] MEDS: ketorolac 30 mg/mL INJ IVP (17:06)
[2022-07-26 17:09] VITALS: RESP 16
[2022-07-26] MEDS: morphine 4 mg/mL SDV 1 mL IVP (17:09)
[2022-07-26 17:12] LABS: Basophils # 0.1 10^3/uL (0.0-0.1); Basophils % 0.8 %; Eosinophils # 0.1 10^3/uL (0.0-0.8); Eosinophils % 1.4 %; Hematocrit 43.5 % (37.0-47.0); Hemoglobin 14.2 g/dL (11.5-15.3); Lymphocytes # 2.5 10^3/uL (0.8-4.8); Lymphocytes % 27.7 %; Mean Corpuscular HGB Conc 32.6 g/dL (30.0-36.0); Mean Platelet Volume 9.6 fL (7.4-10.4); Monocytes # 0.8 10^3/uL (0.2-0.9); Monocytes % 9.2 %; Neutrophils # 5.52 10^3/uL (1.8-7.7); Neutrophils % 60.7 %; Nucleated Red Blood Cells % 0 %; Platelet Count 333 10^3/cmm (130-400); Red Blood Count 4.58 10^6/uL (4.1-5.3); Red Cell Distribution Width 11.9 % (12.1-15.1); White Blood Count 9.1 10^3/uL (4.0-10.0)
[2022-07-26 17:29] LABS: Anion Gap 14.4 (5-19); Blood Urea Nitrogen 14 mg/dL (6-20); Calcium 9.2 mg/dL (8.5-10.5); Carbon Dioxide 28 mmol/L (22-29); Chloride 101 mmol/L (98-107); Glucose 82 mg/dL (65-115); Osmolality Calculated 290 mOsm/kg (285-295); Potassium 3.4 mmol/L (3.5-5.1); Sodium 140 mmol/L (136-145)
== END 2022-07-26 17:44 | disposition home or self-care (01) ==
PROVIDERS: Emergency Provider Family Medicine; PCP Family Medicine
DX: R10.2 Pelvic and perineal pain (principal); N83.209 Unspecified ovarian cyst, unspecified side
CPT/HCPCS: 76830; 80048; 81001; 81025; 85025; 96374; 96375; 99285; J1885; J2270; J2405

== ENCOUNTER 2022-12-13 08:38 | Day surgery (SDC) | payer BC, MEDICAID, SELFPAY ==
[2022-12-12 09:54] LABS: OR HCG Qualitative Urine Negative (Negative)
--- NOTE | 2022-12-12 09:54 | ANES.PREANE2 ---
Pre-Anesthetic Assessment Height/Weight: Height 1.63 m Weight 79.379 kg Preop Diagnosis: Chronic pelvic pain, unable to conceive Operation Date: 12/13/22 10:10 Proposed Procedures p Diagnostic laparoscopy 19803, Chromotubation 75977,R10.2(Not Applicable) - Zach Hanks MD s Chromotubation(Not Applicable) - Zach Hanks MD Familial anesthetic complications: None Social No alcohol and No tobacco Exam alert, oriented x 3, clear to auscultation bilaterally and regular rate & rhythm Airway Mallampati: Class II Dentition: full Metabolic Thyroid Disease Anesthetic Plan ASA status: 2 Anesthesia: General Risk of > 500 ml blood loss (7ml/kg in children): No Medications/Allergies Home Medications Medication Instructions Recorded Confirmed Last Taken Type HINGED ELBOW BRACE #1 ea 03/02/21 12/11/22 Unknown Rx acetaminophen 500 mg tablet 1,000 mg PO Q6H PRN Pain 07/26/22 12/12/22 12/12/22 History diclofenac sodium 75 mg 75 mg PO Q12H PRN pain #20 tabs 07/26/22 12/12/22 Unknown Rx tablet,delayed release levothyroxine 25 mcg tablet 25 mcg PO DAILY 07/26/22 12/12/22 12/12/22 History Allergies Allergy/AdvReac Type Severity Reaction Status Date / Time No Known Allergies Allergy Verified 12/12/22 09:33 PFS Anesthesia Medical History Hypothyroid Family History Unknown Cancer Family hx of Lung and Colon cancer. Denies a hx of breast, ovarian, uterine, pancreatic and thyroid cancers. Social History Smoking and tobacco status: never smoked Female Reproductive History Date of last menstrual period: 12/09/22 Data Anesthesia Cardiac Studies: No Data to Display
[2022-12-12 10:01] LABS: Add Urine Microscopic? NO; Charge for UA Resulting for Rev
[2022-12-12 10:07] LABS: Urine Appearance SL Hazy (CLEAR); Urine Color Yellow (Yellow)
[2022-12-12 10:07] LABS: Basophils # 0.1 10^3/uL (0.0-0.1); Basophils % 0.9 %; Eosinophils # 0.1 10^3/uL (0.0-0.8); Eosinophils % 1.7 %; Hematocrit 41.1 % (37.0-47.0); Hemoglobin 13.6 g/dL (11.5-15.3); Lymphocytes # 1.6 10^3/uL (0.8-4.8); Lymphocytes % 29.3 %; Mean Corpuscular HGB Conc 33.1 g/dL (30.0-36.0); Mean Corpuscular Hemoglobin 30.8 pg (28.0-34.0); Mean Corpuscular Volume 93.2 fl (81-99); Mean Platelet Volume 9.5 fL (7.4-10.4); Monocytes # 0.5 10^3/uL (0.2-0.9); Monocytes % 8.9 %; Neutrophils # 3.18 10^3/uL (1.8-7.7); Neutrophils % 58.8 %; Nucleated Red Blood Cells % 0 %; Platelet Count 254 10^3/cmm (130-400); Red Blood Count 4.41 10^6/uL (4.1-5.3); Red Cell Distribution Width 11.8 % (12.1-15.1); White Blood Count 5.4 10^3/uL (4.0-10.0)
[2022-12-12 10:08] LABS: Bilirubin Urine 1+ (Negative); Blood Urine Neg (Negative); Glucose Urine UA Norm (Normal); Ketones Urine Negative (Negative); Leukocyte Esterase Urine Negative (Negative); Nitrate Urine Negative (Negative); Protein Urine Neg (Negative); Urobilinogen Urine Norm (Negative); pH Urine 6 (5-7)
[2022-12-12 10:21] LABS: Alanine Aminotransferase 13 U/L (0-33); Albumin Level 3.9 g/dL (3.5-5.2); Alkaline Phosphatase 61 U/L (35-105); Anion Gap 12.3 (5-19); Aspartate Amino Transferase 14 U/L (0-32); Blood Urea Nitrogen 8 mg/dL (6-20); Calcium 8.3 mg/dL (8.5-10.5); Carbon Dioxide 26 mmol/L (22-29); Chloride 104 mmol/L (98-107); Globulin 2.6 g/dL (1.3-4.6); Glomerular Filtration Rate 83.1 mL/min (90-130); Glucose 90 mg/dL (65-115); Osmolality Calculated 286 mOsm/kg (285-295); Potassium 3.3 mmol/L (3.5-5.1); Sodium 139 mmol/L (136-145); Total Bilirubin 0.3 mg/dL (0.15-1.2); Total Protein 6.5 g/dL (6.6-8.7)
[2022-12-13] VITALS (8 sets, daily range): BP systolic 94–126; BP diastolic 52–88; PULSE 64–86; RESP 11–18; TEMP 36.1; O2SAT 90–99
[2022-12-13] MEDS: scopolamine 1.5 Patch 1 PATCH TRANSDERMA (09:16)
[2022-12-13] MEDS: sodium chloride 0.9% 500 ML IV (09:50)
--- NOTE | 2022-12-13 09:58 | P.ANESUD_ITS ---
Pre-Anesthetic Update Pre-Anesthetic Assessment: Date of Surgery/Procedure: 12/13/22 Preop Yasmin gnosis: Chronic pelvic pain, unable to conceive Proposed Procedure: Operation Date: 12/13/22 10:10 Proposed Procedures p Diagnostic laparoscopy 44074, Chromotubation 80234,R10.2(Not Applicable) - Zach Hanks MD s Chromotubation(Not Applicable) - Zach Hanks MD Any changes to Pre-Anesthetic Assessment?: No Last Intake: Intake Last Liquid Date 12/12/22 Last Liquid Time 23:00 Last Solid Date 12/12/22 Last Solid Time 20:00 Labs Last 48hrs: Short CBC 12/12/22 Range/Units 09:45 WBC 5.4 (4.0-10.0) 10^3/ uL Hgb 13.6 (11.5-15.3) g/dL Hct 41.1 (37.0-47.0) % MCV 93.2 (81-99) fl Plt Count 254 (130-400) 10^3/c mm Neut % (Auto) 58.8 % Neut # (Auto) 3.18 (1.8-7.7) 10^3/u L BMP 12/12/22 09:45 Sodium 139 Potassium 3.3 L Chloride 104 Carbon Dioxide 26 BUN 8 Creatinine 0.8 Glucose 90 Calcium 8.3 L Liver Function 12/12/22 Range/Units 09:45 Total Bilirubin 0.3 (0.15-1.2) mg/dL AST 14 (0-32) U/L ALT 13 (0-33) U/L Alkaline Phosphata se 61 (35-105) U/L Albumin 3.9 (3.5-5.2) g/dL Urine 12/12/22 Range/Units 09:30 Urine Color Yellow (Yellow) Urine Appearance Sl hazy A (CLEAR) Urine pH 6 (5-7) Ur Specific [place] y 1.020 (1.005-1.030) Urine Protein Neg (Negative) Urine Glucose (UA) Norm (Normal) Urine Ketones Negative (Negative) Urine Nitrate Negative (Negative) Urine Bilirubin 1+ H (Negative) Ur Leukocyte Ann ase Negative (Negative) Blood Bank 12/12/22 09:45 Blood Type B Positive Rho(D) Type Positive Antibody Screen Negative Vitals: Temperature 97 F L 12/13/22 09:01 Temperature Source Temporal Artery S can 12/13/22 09:01 Pulse Rate 86 12/13/22 09:01 Respiratory Rate 18 12/13/22 09:01 Blood Pressure 126/88 12/13/22 09:01 Blood Pressure Robyn n 100 12/13/22 09:01 Pulse Oximetry 98 12/13/22 09:01 Oxygen Delivery Me thod 12/13/22 09:05 Exam: Pre-Anes Outpt Exam: alert, oriented x 3, clear to auscultation bilaterally and regular rate & rhythm Cardiac Studies: No Data to Display
[2022-12-13] MEDS: sodium chloride 0.9% 1,000 ML 30 ML IV (10:15)
--- NOTE | 2022-12-13 10:42 | W.PM.OPSUD ---
Surgery/Procedure H&P Update DATE OF PROCEDURE: December 13, 2022 DATE H&P PERFORMED: 12/11/22 H&P UPDATE INFORMATION: I have reviewed H&P completed within last 30 days, I have examined patient prior to procedure and No changes to prior documentation PREOP DIAGNOSIS: Chronic pelvic pain, unable to conceive PLANNED PROCEDURE: Operation Date: 12/13/22 10:10 Proposed Procedures p Diagnostic laparoscopy 59345, Chromotubation 02413,R10.2(Not Applicable) - Zach Hanks MD s Chromotubation(Not Applicable) - Zach Hanks MD
[2022-12-13] MEDS: ceFAZolin 2,000 MG in sodium chloride 0.9% (plus) 50 ML 100 MG IV (11:06)
--- NOTE | 2022-12-13 12:15 | P.OP_ITS ---
Operative Report Date of procedure: December 13, 2022 Pre-op diagnosis: Preop Diagnosis Chronic pelvic pain, unable to conceive Post-op diagnosis: Same as above. Anterior abdominal wall omental adhesions Post-op findings: Anterior abdominal wall omental adhesions Procedure done: Diagnostic laparoscopy. Lysis of adhesions. Fulguration of endometriosis lesion Chromotubation Specimens removed/disposition: None Pathology: Mild endometriosis Surgeon: Zach Hanks MD Estimated blood loss (mL): 2 IV fluids (mL): 700 Urine output (mL): 250 Complications: None Findings: Anterior abdominal wall omental adhesions Mild endometriosis: Endometriotic lesions noticed in the left sacrospinous ligaments Procedure: DESCRIPTION OF PROCEDURE: After informed consent, the patient was taken to the operating room where general anesthesia was administered. The patient was examined under anesthesia and found to have a normal uterus with normal adnexa. She was placed in the dorsal lithotomy position and prepped and draped in sterile fashion. Pre- Procedure Time-Out verifying the correct patient identity, correct procedure verified with consent, correct site and side, correct patient position, availability of correct implants and any special equipment or requirements was performed and acknowledge by the OR team. A weighted speculum was placed in the vagina, and the anterior lip of cervix was grasped with the single toothed tenaculum. A uterine manipulator was advanced into the endocervical. Tenaculum was removed after uterine manipulator was secured. The speculum was removed from the vagina. An intraumbilical incision was made with a scalpel. While tenting up on the abdomen, a Verres needle with sleeve was admitted into the intra-abdominal cavity. A saline drop test was performed and noted to be within normal limits. Pneumoperitoneum was attained with 4 liters of carbon dioxide. The Verres needle was removed. A 5 mm trocar with Optiview and sleeve were admitted into the abdomen and laparoscopic confirmation of location was achieved. Anterior abdominal wall omental adhesions were noted. A second incision was made left lower quadrant and a 5 mm trocar and sleeve were admitted into the abdomen under direct, laparoscopic visualization without complication. The with the Enseal 5mm laparoscopic [place] tip tissue sealer was used to lyse the adhesions. Then 3 cm above the symphysis pubis, and a third 5 mm trocar and sleeve were admitted into the abdomen under direct, laparoscopic visualization without complication. A survey revealed normal abdominal anatomy. The pelvic survey shows a retroflexed normal uterus, left and right adnexa were normal. A small left morgagni cyst was noticed by the left fallopian tube. A 5 mm blunt probe was advanced through the second trocar sleeve, and light manipulation of ovaries and uterus to assess the posterior aspects was performed. A small endometriotic lesion was noted over left uterosacral ligament and the lesion was fulgurated with the Enseal 5 mm [place] tip tissue sealer. Then methylene blue was in jected through the end of the uterine manipulator directly into the uterus then bilateral spillage of methylene blue was noted. The laparoscope was then used watch for direct visualization of methylene blue. then the carbon dioxide was allowed to escape from the abdomen. The instruments were removed, and skin was closed with 3-0 Vicryl in subcuticular fashion and covered with Dermabond. The instruments were removed from the vagina, and excellent hemostasis was noted. The patient tolerated the procedure well, and sponge, lap and needle count were correct times two. The patient taken to the recovery room in good condition.
--- NOTE | 2022-12-13 12:51 | PC.NURSE ---
rodriguez cath removed. 300 ml clear yellow urine.
--- NOTE | 2022-12-13 13:10 | ANE.PACU2 ---
Inpatient post-anesthesia follow up: Airway intact: Yes Vital signs: Temperature 97 F Pulse Rate 64 Respiratory Rate 18 Blood Pressure 116/80 Pulse Oximetry 99 Oxygen Delivery Me thod Room Air Oxygen Flow Rate Fraction of Inspir ed Oxygen Hydration adequate: Yes Nausea and vomiting: No Pain level: 1 Mental status: Baseline
[2022-12-13] MEDS: HYDROcodone-acetaminophen 5-325 mg Tablet 1 TAB PO (13:16)
== END 2022-12-13 13:54 | disposition home or self-care (01) ==
PROVIDERS: PCP Family Medicine; Visit Provider Obstetrics & Gynecology
PROC: (CPT 49320; principal; 2022-12-13 10:00)
PROC: 3E0P7KZ Introduction of Other Diagnostic Substance into Female Reproductive, Via Natural or Artificial Opening (ICD-10-PCS; CPT 58350; 2022-12-13 10:00)
DX: R10.2 Pelvic and perineal pain (principal); G89.29 Other chronic pain; E03.9 Hypothyroidism, unspecified; Z31.41 Encounter for fertility testing; N80.9 Endometriosis, unspecified; Q50.5 Embryonic cyst of broad ligament
CPT/HCPCS: 58350; 58662; 36415; 80053; 81003; 81025; 84703; 85025; 86850; 86900; J0690; J1100; J1200; J2250; J2405; J2704; J3010; J3490; J7030; J7040; Q9968

== ENCOUNTER → 2023-03-27 13:50 | Outpatient (BNVA) | payer BC, MEDICAID, SELFPAY | PROVIDERS: PCP Family Medicine; Visit Provider Obstetrics & Gynecology | DX: Z48.816 Encounter for surgical aftercare following surgery on the genitourinary system (principal); R45.86 Emotional lability | CPT/HCPCS: 83001 ==

== ENCOUNTER 2023-05-21 11:30 | Outpatient (CLI) | payer BC, MEDICAID, SELFPAY | END 2023-05-21 11:31 | disposition home or self-care (01) | LOC: SLEEP 05-22 15:37 | PROVIDERS: PCP Family Medicine; Visit Provider Family Medicine | DX: G47.10 Hypersomnia, unspecified (principal); R06.83 Snoring; R53.83 Other fatigue | CPT/HCPCS: G0399 ==

== ENCOUNTER → 2024-03-31 12:12 | Outpatient (BNVA) | payer BC, MEDICAID, SELFPAY | PROVIDERS: PCP Family Medicine; Visit Provider Obstetrics & Gynecology | DX: R10.2 Pelvic and perineal pain (principal) | CPT/HCPCS: 76830 ==

== ENCOUNTER → 2024-06-16 08:07 | Outpatient (BNVA) | payer BC, MEDICAID, SELFPAY | PROVIDERS: PCP Family Medicine; Visit Provider Obstetrics & Gynecology | DX: N83.292 Other ovarian cyst, left side (principal); R10.2 Pelvic and perineal pain | CPT/HCPCS: 76830 ==

== ENCOUNTER 2025-05-29 19:48 | Emergency (ER) | payer BC, MEDICAID, SELFPAY ==
[2025-05-29 19:53] VITALS: BP 122/84; PULSE 93; RESP 14; TEMP 36.4; O2SAT 100
[2025-05-29 20:48] LABS: Hematocrit 35.7 % (36-47); Hemoglobin 11.80 g/dL (11.27-16.99); Mean Corpuscular HGB Conc 33.1 g/dL (30-55); Mean Corpuscular Hemoglobin 30.2 pg (27-33); Mean Corpuscular Volume 91.3 fl (85-98); Nucleated Red Blood Cells % 0 %; Platelet Count 348 10^3/cmm (157-399); Red Blood Count 3.91 10^6/uL (3.85-5.65); White Blood Count 13.49 10^3/uL (3.29-11.43)
[2025-05-29 21:08] LABS: Alanine Aminotransferase 13 U/L (0-33); Albumin Level 3.7 g/dL (3.5-5.2); Alkaline Phosphatase 63 U/L (35-105); Anion Gap 11.7 (5-19); Aspartate Amino Transferase 11 U/L (0-32); Blood Urea Nitrogen 9 mg/dL (6-20); Calcium 8.8 mg/dL (8.5-10.5); Carbon Dioxide 25 mmol/L (22-29); Chloride 102 mmol/L (98-107); Creatinine Clr Calc Pharmacy 153.4343; Globulin 2.8 g/dL (1.3-4.6); Glucose 90 mg/dL (65-115); Osmolality Calculated 278 mOsm/kg (285-295); Potassium 3.7 mmol/L (3.5-5.1); Sodium 135 mmol/L (136-145); Total Protein 6.5 g/dL (6.6-8.7)
--- NOTE | 2025-05-29 22:07 | USR_ITS ---
PROCEDURE INFORMATION: Exam: US First Trimester, Transabdominal Exam date and time: 05/29/2025 10:45 PM Age: 34 years old Clinical indication: complicated by abdominal or pelvic pain; Left lower quadrant; First trimester (<14 weeks 0 days); Gestational age or lmp: 10w 3d per PT. 10w6d per US; ; Prior surgery; Surgery date: 6+ months; Surgery type: Unsure of dates but patient has had c sections; Additional info: Cramping llq LABS AND CLINICAL REPORTS: Last menstrual period start date: Unknown Gestational age (Established): 10 w 3 d Estimated due date (Established): 12/22/2025 TECHNIQUE: Imaging protocol: Real-time transabdominal obstetrical ultrasound of the maternal pelvis and a first trimester , less than 14 weeks 0 days, with image documentation. COMPARISON: US transvaginal [id number] 06/16/2024 8:08 AM FINDINGS: GESTATION: Gestation: A single intrauterine is noted. movement was documented by the collet maker. Embryo/ cardiac activity (BPM): 167 bpm. heart rate measures 167 bpm. Extra-embryonic membranes/Placenta: Unremarkable. No subchorionic bleed. Amniotic/Chorionic fluid: Amniotic and extra-amniotic fluid are normal for gestational age. BIOMETRY: Gestational age (AUA): See [place] rump length (CRL) finding. [place] rump length (CRL): [place]-rump length measures 3.91 cm-3.97 cm, consistent with an estimated 10 week 6 day gestational age. MATERNAL: Uterus: Unremarkable. Cervix: Cervical length measures 0 cm. Cervical length measures 3.5 cm. The cervix is closed. Right ovary/adnexa: The right ovary measures 2.0 x 1.6 x 3.8 cm with a volume of 6 mL. Left ovary/adnexa: The left ovary was not measured on this evaluation. Intraperitoneal space: No free pelvic fluid. Other findings: Bilateral ovarian color Doppler flow is noted. US/US OB <= 14 weeks fetus [id number] IMPRESSION: 1. Single viable intrauterine with estimated gestational age of 10 weeks 6 days by crown-rump length. 2. heart rate of 167 bpm. 3. No acute sonographic abnormality on this limited viability scan.
[2025-05-29 22:39] LABS: Glucose Urine UA Negative (Normal); Nitrate Urine Negative (Negative); Specific Gravity, Urine 1.025 (1.005-1.030)
[2025-05-29 22:43] LABS: Add Urine Microscopic? YES
--- NOTE | 2025-05-29 23:11 | W.ED.PREGNAN ---
HPI - General: Chief complaint: Vaginal Bleeding Stated complaint: almost 10 wks preg and started bleeding Time Seen by Provider: 05/29/25 22:07 History of Present Illness: Patient is 34-year-old female para 3 2, presents with 10 weeks gestation, with sudden spotting. Initially, patient wears a panty liner daily, and noted her panty liner was saturated. She immediately came to the ED. She just had 2 drops at the time of presentation to the ED. She had left lower quadrant cramping. This has now resolved. No dysuria. No flank pain. Associated symptoms: Reports vaginal discharge; Deny abdominal pain, dysuria, headache(s), nausea or vomiting Related Data Previous Rx's ?Medication ?Instructions ?Recorded naproxen 500 mg tablet 500 mg PO BID 10 days #20 tabs 10/06/24 scopolamine base 1 mg over 3 days 1 patch transdermal Q3D PRN nausea 10/06/24 transdermal patch and vomiting #4 ea cefdinir 300 mg capsule 300 mg PO BID 10 days #20 caps 05/29/25 Allergies Allergy/AdvReac Type Severity Reaction Status Date / Time No Known Allergies Allergy Verified 05/29/25 19:55 Review of Systems Const: Denies: fever(s) or chills Eyes: Denies: change in vision or blurry vision ENMT: Denies: throat pain or mouth pain Card: Denies: chest pain or palpitations Resp: Denies: dyspnea, productive cough or non-productive cough GI: Denies: abdominal pain, nausea or vomiting : Reports: vaginal discharge; Denies: flank pain, difficulty voiding or dysuria Musc: Reports: neck pain Skin/Breast: Denies: rash or pruritus Neuro: Denies: headache(s) or numbness in extremities Psych: Denies: anxiety or depression PFS ED PFSH: Medical History (Updated 05/29/25 @ 23:41 by MARILYN Archuleta) Hypothyroid Surgical History History of laparoscopy (~12/13/22) Laparoscopy, ALEJANDRO, fulguration of endometriosi, chromotubation performed at [facility] by Dr. Hanks for chronic PP and infertility. Finding: anterior abdominal wall omental adhesion, endometriosis lesion in the left sacrospinous ligaments. Family History Unknown Cancer Family hx of Lung and Colon cancer. Denies a hx of breast, ovarian, uterine, pancreatic and thyroid cancers. Social History Smoking and tobacco/nicotine status: never used tobacco/nicotine Physical Exam Const: COMMON NORMALS: no acute distress, average body habitus, patient oriented x3 and no limitations HENMT: COMMON NORMALS: normocephalic and atraumatic HEAD & SCALP: normocephalic and atraumatic Eye: COMMON NORMALS: Equal, round and reactive pupils present, EOMs intact bilaterally and conjunctivae normal CONJUNCTIVA: Yes conjunctivae normal PUPIL: Yes Equal, round and reactive pupils present Neck/C-Spine: COMMON NORMALS: full ROM, no lymphadenopathy and supple Lymph: LYMPHATIC: no lymphadenopathy noted Chest: COMMONS NORMALS: normal inspection of the chest and normal palpation of entire chest wall Resp: COMMON NORMALS: normal respiratory effort, No retractions and clear to auscultation bilaterally AUSCULTATION: clear to auscultation bilaterally Cardio: COMMON NORMALS: regular rate and regular rhythm RATE: regular rate RHYTHM: regular rhythm GI: COMMON NORMALS: Normal to inspection, nondistended, normoactive bowel sounds present, Soft to palpation and non-tender PALPATION: Yes Soft to palpation : COMMON NORMALS: Yes no CVA tenderness BLADDER/KIDNEY EXAM: Yes no CVA tenderness Back/Pelvis: COMMON NORMALS: no CVA tenderness Extremity: COMMON NORMALS: normal to inspection, full ROM and capillary refill normal Neuro: COMMON NORMALS: patient oriented x3 Psych: COMMON NORMALS: mental status grossly normal, Normal thought process present, cooperative and normal affect THOUGHT PROCESS: Normal thought process present Skin: COMMON NORMALS: no rashes or lesions noted and no wounds GENERAL SKIN EXAM: no rashes or lesions noted Course Vital Signs: Vital signs: Vital Signs Temperature 97.5 F L 05/29/25 19:53 Pulse Rate 93 05/29/25 19:53 Respiratory Rate 14 05/29/25 19:53 Blood Pressure 122/84 05/29/25 19:53 Pulse Oximetry 100 05/29/25 19:53 MDM - OB/Uterine Contractions Medical Decision Making Ultrasound shows 10.2 weeks gestation without subchorionic bleed, heart rate 171, good flow to both ovaries, and no issues. Will place patient on pelvic rest, off work, no lifting over half gallon of milk. Urinalysis is pending, and we will treat her for such if this is abnormal for . Lab Data 05/29/25 20:42 05/29/25 20:42 Radiology Impressions Ultrasound 05/29/25 22:07 IMPRESSION: 1. Single viable intrauterine with estimated gestational age of 10 weeks 6 days by crown-rump length. 2. heart rate of 167 bpm. 3. No acute sonographic abnormality on this limited viability scan. Laboratory Results WBC 13.49 10^3/uL (3.29-11.43) H 05/29/25 20:42 RBC 3.91 10^6/uL (3.85-5.65) 05/29/25 20:42 Hgb 11.80 g/dL (11.27-16.99) 05/29/25 20:42 Hct 35.7 % (36-47) L 05/29/25 20:42 MCV 91.3 fl (85-98) 05/29/25 20:42 MCH 30.2 pg (27-33) 05/29/25 20:42 MCHC 33.1 g/dL (30-55) 05/29/25 20:42 RDW 12.6 % (12.1-15.1) 05/29/25 20:42 Plt Count 348 10^3/cmm (157-399) 05/29/25 20:42 MPV 9.2 fL (7.4-10.4) 05/29/25 20:42 Neut % (Auto) 71.6 % 05/29/25 20:42 Lymph % (Auto) 20.3 % 05/29/25 20:42 [place] % (Auto) 6.4 % 05/29/25 20:42 Eos % (Auto) 0.8 % 05/29/25 20:42 Baso % (Auto) 0.5 % 05/29/25 20:42 Neut # (Auto) 9.64 10^3/uL (1.8-7.7) H 05/29/25 20:42 Lymph # (Auto) 2.7 10^3/uL (0.8-4.8) 05/29/25 20:42 [place] # (Auto) 0.9 10^3/uL (0.2-0.9) 05/29/25 20:42 Eos # (Auto) 0.1 10^3/uL (0.0-0.8) 05/29/25 20:42 Baso # (Auto) 0.1 10^3/uL (0.0-0.1) 05/29/25 20:42 Nucleated RBC % (auto) 0 % 05/29/25 20:42 Nucleated RBCs # 0.0 /100WBC 05/29/25 20:42 Sodium 135 mmol/L (136-145) L 05/29/25 20:42 Potassium 3.7 mmol/L (3.5-5.1) 05/29/25 20:42 Chloride 102 mmol/L (98-107) 05/29/25 20:42 Carbon Dioxide 25 mmol/L (22-29) 05/29/25 20:42 Anion Gap 11.7 (5-19) 05/29/25 20:42 BUN 9 mg/dL (6-20) 05/29/25 20:42 Creatinine 0.5 mg/dL (0.5-0.9) 05/29/25 20:42 GFR Calculation 141.2 mL/min (90-130) H 05/29/25 20:42 Glucose 90 mg/dL (65-115) 05/29/25 20:42 Calculated Osmolality 278 mOsm/kg (285-295) L 05/29/25 20:42 Calcium 8.8 mg/dL (8.5-10.5) 05/29/25 20:42 Total Bilirubin 0.2 mg/dL (0.15-1.2) 05/29/25 20:42 AST 11 U/L (0-32) 05/29/25 20:42 ALT 13 U/L (0-33) 05/29/25 20:42 Alkaline Phosphatase 63 U/L (35-105) 05/29/25 20:42 Total Protein 6.5 g/dL (6.6-8.7) L 05/29/25 20:42 Albumin 3.7 g/dL (3.5-5.2) 05/29/25 20:42 Globulin 2.8 g/dL (1.3-4.6) 05/29/25 20:42 Ser , Semi-Qnt 759914.00 mIU/mL 05/29/25 20:42 Urine Color Yellow (Yellow) 05/29/25 22:18 Urine Appearance Clear (CLEAR) 05/29/25 22:18 Urine pH 6.0 (5-7) 05/29/25 22:18 Ur Specific [place] 1.025 (1.005-1.030) 05/29/25 22:18 Urine Protein Negative (Negative) 05/29/25 22:18 Urine Glucose (UA) Negative (Normal) 05/29/25 22:18 Urine Ketones Negative (Negative) 05/29/25 22:18 Urine Blood 2+ (Negative) A 05/29/25 22:18 Urine Nitrate Negative (Negative) 05/29/25 22:18 Urine Bilirubin Negative (Negative) 05/29/25 22:18 Urine Urobilinogen 1.0 mg/dL (Negative) 05/29/25 22:18 Ur Leukocyte Esterase Negative (Negative) 05/29/25 22:18 Urine RBC 0-2 /hpf (0-2) 05/29/25 22:18 Urine WBC 6-10 /hpf (0-5) 05/29/25 22:18 Ur Squamous Epith Cells 6-10 /hpf (0-5) 05/29/25 22:18 Amorphous Sediment Not Reportable 05/29/25 22:18 Urine Bacteria 1+ /hpf (NONE) H 05/29/25 22:18 Hyaline Casts 0-4 /lpf H 05/29/25 22:18 Blood Type B Positive 05/29/25 23:05 Rho(D) Type Rh positive 05/29/25 23:05 Antibody Screen Negative 05/29/25 23:05 All radiology interpretation(s) finalized by discharge Discharge Plan Discharge Patient Disposition: Home Clinical Impression: Dysfunctional uterine bleeding, Pyuria Condition: Stable Prescriptions: New cefdinir 300 mg capsule 300 mg PO BID 10 Days Qty: 20 0RF No Action scopolamine base 1 mg over 3 days patch 3 day 1 patch transdermal Q3D PRN (Reason: nausea and vomiting) Qty: 4 0RF naproxen 500 mg tablet 500 mg PO BID 10 Days Qty: 20 0RF Discharge Orders: Discharge ED (Routine); Ordered 05/30/25 Ordered By: Rhianna Rincon Referrals: Ish Mcghee MD [Primary Care Provider, Family Practice] Discharge Diet: Usual diet Discharge Activity: Limit activity as instructed Patient Instructions: Threatened Miscarriage (ED), Patient Portal & [facility]ia Instructions Activity Restrictions/Additional Instructions: Your level was 228,000 You will need your hCG level repeated next week on your visit Complete pelvic rest and bedrest. This means no intercourse, no tampons. No picking up over 1/2 gallon of milk - Your blood type is B+ Return to ED if you have any worsening pain, or bleeding. Follow-up with your doctor as planned on Sunday Stand Alone Forms: Work/School Release Print Language: Maori Coding Level of Care Code ED Customer Service Specialist for Gay Garcia
[2025-05-30] MEDS: cefTRIAXone 1,000 mg SDV 1000 MG IM (00:33)
== END 2025-05-30 00:57 | disposition home or self-care (01) ==
PROVIDERS: Student in an Organized Health Care Education/Training Program; Emergency Provider Physician Assistant; PCP Family Medicine
DX: O20.8 Other hemorrhage in early pregnancy (principal); Z3A.10 10 weeks gestation of pregnancy; O99.891 Other specified diseases and conditions complicating pregnancy; R82.81 Pyuria
CPT/HCPCS: 36415; 76801; 80053; 81001; 84702; 85025; 86850; 86900; 87086; 96372; 99284; J0696; J9999